=== PATIENT | female | born 1955 | race Asian ===

== ENCOUNTER 2021-03-30 09:39 | Emergency (ER) | payer BC, OTHER, SELFPAY ==
[~2021-03-30] VITALS: Ht 152.4 cm; Wt 49.9 kg
[2021-03-30 09:52] VITALS: BP_SYST 142
[2021-03-30] MEDS ORDERED: ALBU2.5V7 INH (10:36)
[2021-03-30] MEDS ORDERED: PRED20TA PO (10:36)
[2021-03-30 10:58] VITALS: BP_SYST 142
== END 2021-03-30 10:58 | disposition home or self-care (01) ==
LOC: SED 09:39
DX: U07.1 COVID-19 (principal); Z88.1 Allergy status to other antibiotic agents
CPT/HCPCS: 71045; 99283